=== PATIENT | female | born 1970 | race African-American/Black ===

== ENCOUNTER 2018-06-11 21:43 | Emergency (ER) | payer SELFPAY ==
[2018-06-11] MEDS ORDERED: Morphine 2 MG/ML SYRINGE ONE (21:57)
[2018-06-11] MEDS ORDERED: Ketorolac Tromethamine 30 MG/ML VIAL ONE (23:39)
--- NOTE | 2018-06-13 08:16 | CON ---
DATE OF CONSULTATION: 06/11/2018 CHIEF COMPLAINT: Abdominal pain and shortness of breath. HISTORY OF PRESENT ILLNESS: The patient is a 48-year-old female who was seen at an outside ER facility for acute onset shortness of breath due to what she believes was a muscle spasm in her ribcage. Upon initial evaluation, the patient was noted to have an ectopic IUD and fever, that coupled with her shortness of breath and overall picture. The ER physician was concerned that she had an infectious process secondary to this perforated uterus and was transferred to [facility] ER for evaluation. Upon evaluation, the patient was again evaluated by the ER physician here, Dr. Sharif, and again noting the ectopic IUD and pain of the patient, MINERALOGY PROFESSOR was consulted for evaluation. Discussing her symptoms, the patient reports that she woke up with pain in her right upper abdomen/chest area that made breathing very difficult. She does report that she just moved the last couple of days to the community and has been moving larger boxes and furniture than she is accustomed to and believes that she pulled a muscle. The patient reports that she just started her period a couple of days ago and reports regular monthly periods. She denies feeling sick and was surprised that she was told she had a fever at the outlying facility of 102. The patient denies any sick contacts. She denies diarrhea. She denies vomiting. She denies dizziness. She reports right lower chest pain associated with breathing and movement and also associated shortness of breath. The patient denies any skin rashes. She denies any change in her discharge, urinary urgency or frequency. PAST MEDICAL HISTORY: Negative. PAST SURGICAL HISTORY: She reports having an IUD placed about 6 years ago under sedation. SOCIAL HISTORY: She reports a cigarette use of 4 cigarettes per day. REVIEW OF SYSTEMS: Per HPI. PHYSICAL EXAMINATION: VITAL SIGNS: The patient has remained afebrile throughout her ER encounter here at [facility] with a current temperature of 98.6, blood pressure of 111/58, pulse of 80, respiratory rate of 20, and pain on presentation reported of 7/10. GENERAL: The patient appears to have difficulty taking normal size breath. She does not appear toxic, diaphoretic, or febrile. LUNGS: Clear to auscultation bilaterally. HEART: Regular rate and rhythm. She does have point tenderness in the intercostal muscles in her right lower ribcage and around the mid costal line. This pain is easily duplicated with palpation to the area and is exquisitely painful to her. She reports that this pain is her primary concern and what brought her into the emergency room initially. She does report that it radiates down her abdomen on the right side. ABDOMEN: Obese and soft. She has some mild tenderness in the right lower quadrant, but she has no peritoneal signs or guarding. EXTREMITIES: Nontender. : She does have a very small amount of menstrual blood, not purulent. On bimanual exam, the patient has some mild tenderness, but no exquisite tenderness that would be expected if she had an infected uterus or abdomen from perforation. LABORATORY DATA: White count at the outside facility was 11. CT scan shows an ectopic IUD along the outer surface of the uterus, did not show any evidence of inflammation to the area. No fat stranding. No free fluid. No lymphadenopathy reported. IMPRESSION AND PLAN: The patient is a 48-year-old menstruating female with an ectopic IUD, incidentally discovered in evaluating her abdominal/chest pain. I do not believe this IUD has any correlation with her current symptoms. This misplaced IUD likely occurred at the time of placement or shortly thereafter. There is no imaging that supports local infection to the area. Her white count does not support systemic infection. I cannot explain the outside documentation of febrile condition of 102 and 101 temperature. However, she has remained afebrile here at [facility]. During my evaluation, I was able to stretch out the patient's intercostal muscles and ribcage giving some relief to the patient's acute pain. Afterwards, she was able to breathe more easily and reported that the pain had improved some. The patient also does not believe that her pain is stemming from her uterus. Being unable to explain her febrile conditions, I have recommended the patient go home with doxycycline and Flagyl to hold onto. Should she begin experiencing abdominal pain and recurrent fever, we have asked her to begin taking them. In the meantime, the patient has been counseled to continue anti-inflammatories, heat and stretching to the area of previous concern as this will help bring relief more quickly. She has also been counseled to seek out care with an MINERALOGY PROFESSOR, who can discuss removal of this ectopic IUD. The patient expressed thanks for her care and will be discharged to home under the care of the ER physician emanuel and Tim. Job ID: [id number]
== END 2018-06-11 23:50 | disposition home or self-care (01) ==
LOC: ERS 21:43
DX: T83.32XA Displacement of intrauterine contraceptive device, initial encounter (principal); R10.9 Unspecified abdominal pain; R50.9 Fever, unspecified; F17.210 Nicotine dependence, cigarettes, uncomplicated
CPT/HCPCS: 96361; 96374; 96375; J1885; J2270